=== PATIENT | male | born 1985 | race Two or more races ===

== ENCOUNTER 2021-02-13 11:43 | Outpatient (REF) | payer OTHER, SELFPAY ==
--- NOTE | ~2021-02-13 | XR_ITS ---
EXAMINATION: XR CHEST CLINICAL INFORMATION: Chronic bronchitis COMPARISON: None TECHNIQUE: 2 views of the chest were obtained. FINDINGS: No significant abnormality is noted involving the heart, lungs, mediastinum, bony thorax or soft tissues. XR/XR chest 2V IMPRESSION: Unremarkable examination.
== END 2021-02-13 11:44 | disposition home or self-care (01) ==
LOC: HO.XRAY 11:43
PROVIDERS: PCP Internal Medicine Medical Oncology; Visit Provider Internal Medicine Medical Oncology
DX: J42 Unspecified chronic bronchitis (principal)
CPT/HCPCS: 71046

== ENCOUNTER 2021-02-16 07:12 | Outpatient (REF) | payer OTHER, SELFPAY ==
[2021-02-16 08:19] LABS: Basophils Percent Auto 0.7 % (0-2); Eosinophils Absolute Auto 0.1 X10*3/uL (0.0-0.4); Eosinophils Percent Auto 3.7 % (0-4); Hematocrit 43.7 % (42-52); Hemoglobin 14.9 g/dl (14.0-18.0); Lymphocytes Absolute Auto 1.4 X10*3/uL (1.2-4.9); Lymphocytes Percent Auto 51.9 % (20-40); MANUAL DIFF FLAG SCAN; Mean Corpuscular HGB Conc 34.1 g/dl (31.0-36.0); Mean Corpuscular Hemoglobin 30.6 pg (27.0-33.0); Mean Corpuscular Volume 89.7 fL (80-98); Mean Platelet Volume 10.4 fL (9.4-12.4); Monocytes Absolute Auto 0.4 X10*3/uL (0.1-1.2); Monocytes Percent Auto 13.3 % (2-11); Neutrophils Absolute Auto 0.8 X10*3/uL (2.0-8.3); Neutrophils Percent Auto 30.4 % (45-73); Platelet Count 186 X10*3/uL (160-400); Red Blood Count 4.87 X10*6/uL (4.60-5.80); Red Cell Distribution Width 11.9 % (11.0-16.0); SCAN SMEAR FLAG 1; White Blood Count 2.7 X10*3/uL (4.8-10.8)
[2021-02-16 08:33] LABS: Alanine Aminotransferase 34 U/L (0-40); Albumin Level 4.1 g/dL (3.5-5.0); Alkaline Phosphatase 63 U/L (39-117); Anion Gap 9 (12-20); Aspartate Amino Transferase 27 U/L (5-37); Bilirubin Total 0.3 mg/dL (0.0-1.0); Blood Urea Nitrogen 10 mg/dL (9-16); Calcium 8.7 mg/dL (8.4-10.2); Carbon Dioxide 28 mmol/L (22-29); Chloride 106 mmol/L (96-108); Cholesterol 172 mg/dL; Estimated Glomerular Filt Rate > 60; Glucose Fasting 107 mg/dL (60-99); HDL Cholesterol 44 mg/dL; LDL Cholesterol Calculated 113 mg/dl; Sodium 139 mmol/L (135-145); Total Protein 7.2 g/dL (6.5-8.0); Triglycerides 77 mg/dL
[2021-02-16 08:52] LABS: PSA,Total (Free>4and<10) 0.49 ng/mL (0.00-4.00)
[2021-02-16 09:03] LABS: SLIDE REVIEW VERIFIED
== END 2021-02-16 07:13 | disposition home or self-care (01) ==
LOC: HO.HSHHMC 07:12
PROVIDERS: Visit Provider Internal Medicine Medical Oncology
DX: Z12.5 Encounter for screening for malignant neoplasm of prostate (principal); R35.1 Nocturia; E66.3 Overweight
CPT/HCPCS: 36415; 80053; 80061; 84153; 85025

== ENCOUNTER 2023-02-24 08:09 | Outpatient (REF) | payer OTHER, SELFPAY ==
[2023-02-24 08:27] LABS: MANUAL DIFF FLAG NO
[2023-02-24 09:13] LABS: Basophils Percent Auto 1.3 % (0-2); Eosinophils Absolute Auto 0.1 X10*3/uL (0.0-0.4); Eosinophils Percent Auto 2.5 % (0-4); Hematocrit 44.7 % (42.0-52.0); Hemoglobin 15.3 g/dl (14.0-18.0); Imm Gran Abs Auto 0.01 X10*3/uL (0.00-0.03); Imm Gran Pct Auto 0.3 % (0.0-0.4); Lymphocytes Absolute Auto 1.4 X10*3/uL (1.2-4.9); Lymphocytes Percent Auto 42.8 % (20-40); Mean Corpuscular HGB Conc 34.2 g/dl (31.0-36.0); Mean Corpuscular Hemoglobin 30.4 pg (27.0-33.0); Mean Corpuscular Volume 88.7 fL (80.0-98.0); Mean Platelet Volume 10.4 fL (9.4-12.4); Monocytes Absolute Auto 0.5 X10*3/uL (0.1-1.2); Monocytes Percent Auto 15.4 % (2-11); Neutrophils Absolute Auto 1.2 x10*3/uL (2.0-8.3); Neutrophils Percent Auto 37.7 % (45-73); Platelet Count 188 X10*3/uL (160-400); Red Blood Count 5.04 X10*6/uL (4.60-5.80); Red Cell Distribution Width 11.8 % (11.0-16.0); White Blood Count 3.2 X10*3/uL (4.8-10.8)
[2023-02-24 09:50] LABS: Alanine Aminotransferase 28 U/L (0-40); Albumin Level 4.1 g/dL (3.5-5.0); Alkaline Phosphatase 67 U/L (39-117); Anion Gap 13 (12-20); Aspartate Amino Transferase 24 U/L (5-37); Bilirubin Total 0.4 mg/dL (0.0-1.0); Blood Urea Nitrogen 12 mg/dL (9-16); Calcium 9.2 mg/dL (8.4-10.2); Carbon Dioxide 28 mmol/L (22-29); Chloride 105 mmol/L (96-108); Cholesterol 186 mg/dL (<200); Estimated Glomerular Filt Rate > 60; Glucose Fasting 98 mg/dL (60-99); HDL Cholesterol 39 mg/dL (>40); LDL Cholesterol Calculated 128 mg/dL (<100); Sodium 142 mmol/L (135-145); Total Protein 7.7 g/dL (6.5-8.0); Triglycerides 98 mg/dL (<150)
== END 2023-02-24 08:10 | disposition home or self-care (01) ==
LOC: HO.LAB 08:09
PROVIDERS: PCP Internal Medicine Medical Oncology; Visit Provider Internal Medicine Medical Oncology
DX: Z00.00 Encounter for general adult medical examination without abnormal findings (principal); E66.3 Overweight
CPT/HCPCS: 36415; 80053; 80061; 85025

== ENCOUNTER 2024-02-23 08:01 | Outpatient (REF) | payer OTHER, SELFPAY ==
[2024-02-23 08:23] LABS: Basophils Percent Auto 1.2 % (0-2); Eosinophils Absolute Auto 0.1 X10*3/uL (0.0-0.4); Eosinophils Percent Auto 2.5 % (0-4); Hematocrit 44.6 % (42.0-52.0); Hemoglobin 15.8 g/dl (14.0-18.0); Lymphocytes Absolute Auto 1.4 X10*3/uL (1.2-4.9); MANUAL DIFF FLAG SCAN; Mean Corpuscular HGB Conc 35.4 g/dl (31.0-36.0); Mean Corpuscular Hemoglobin 31.4 pg (27.0-33.0); Mean Corpuscular Volume 88.7 fL (80.0-98.0); Mean Platelet Volume 9.7 fL (9.4-12.4); Monocytes Absolute Auto 0.4 X10*3/uL (0.1-1.2); Monocytes Percent Auto 14.8 % (2-11); Neutrophils Absolute Auto 0.6 x10*3/uL (2.0-8.3); Neutrophils Percent Auto 25.5 % (45-73); Platelet Count 188 X10*3/uL (160-400); Red Blood Count 5.03 X10*6/uL (4.60-5.80); Red Cell Distribution Width 11.7 % (11.0-16.0); SCAN SMEAR FLAG 1
[2024-02-23 08:28] LABS: White Blood Count 2.4 X10*3/uL (4.8-10.8)
[2024-02-23 08:54] LABS: Alanine Aminotransferase 27 U/L (0-40); Albumin Level 4.3 g/dL (3.5-5.0); Alkaline Phosphatase 78 U/L (39-117); Anion Gap 10 (12-20); Aspartate Amino Transferase 22 U/L (5-37); Bilirubin Total 0.3 mg/dL (0.0-1.0); Blood Urea Nitrogen 13 mg/dL (9-16); Carbon Dioxide 29 mmol/L (22-29); Chloride 105 mmol/L (96-108); Cholesterol 187 mg/dL (<200); Estimated Glomerular Filt Rate > 60; Glucose Fasting 97 mg/dL (60-99); HDL Cholesterol 36 mg/dL (>40); LDL Cholesterol Calculated 133 mg/dL (<100); Potassium 3.9 mmol/L (3.3-5.1); Sodium 140 mmol/L (135-145); Total Protein 7.8 g/dL (6.5-8.0); Triglycerides 92 mg/dL (<150)
[2024-02-23 09:08] LABS: SLIDE REVIEW VERIFIED
[2024-02-23 09:22] LABS: Prostate Specific Antigen 0.58 ng/mL (<0.05-4.0)
== END 2024-02-23 08:02 | disposition home or self-care (01) ==
LOC: HO.LAB 08:01
PROVIDERS: PCP Internal Medicine Medical Oncology; Visit Provider Internal Medicine Medical Oncology
DX: Z00.00 Encounter for general adult medical examination without abnormal findings (principal); E66.3 Overweight; N40.0 Benign prostatic hyperplasia without lower urinary tract symptoms; Z12.5 Encounter for screening for malignant neoplasm of prostate
CPT/HCPCS: 36415; 80053; 80061; 84153; 85025

== ENCOUNTER 2025-02-28 07:51 | Outpatient (REF) | payer OTHER, SELFPAY ==
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
--- OUTSIDE RECORDS SUMMARY | 2025-02-28 07:55 | XMS_ITS | Patient Health Record ---
Author Organization Tone Tolentino III, MD Address [address] [place] [address] [place] [address] Care Team Providers Care Printing Roller Polisher Name Role Phone Dr. Tone Tolentino III [...] 0.2 - 1.3 BLD Negative Negative - Reason For Referral No Information Immunizations Vaccine Route Administration Date Status Comme nts Tdap Unknown 03/22/2019 Administered Influenza, quad Unknown 03/22/2019 Administered Influenza, quad Unknown 05/26/2020 Administered COVID- 19 Vaccine Unknown 03/12/2021 Administered COVID- 19 Vaccine Unknown 07/29/2021 Administered Decline: Influenza Unknown 02/29/2024 Others Social History [...] Never (0 point) Points 1 Interpretation Negative Problems Problem Type SNOMED Code ICD Code Onset Dates Problem Status W/U Status Risk Notes Problem Overweight (998672623) Overweight (BMI 25.0-29.9) (E66.3) Active confirmed His body mass index is 26. This is mostly muscle development. His examination shows very little body fat. His skin. Problem Benign prostatic hypertrophy without outflow obstruction (951991068) BPH (benign prostatic hypertrophy) (N40.0) Active confirmed He arises from sleep 0 to once a night. We discussed lifestyle modification as a way of reducing this. Problem 489350520 Neutropenia, unspecified type (D70.9) Active confirmed The white blood cell count is 2400 with an unremarkable differential.. He has had no significant infections. This will be observed.He has had no significant infections. Problem Chronic bronchitis (94311363) Chronic bronchitis (J42) Active confirmed . His pulmonary congestion has resolved. The cough has not been present. 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 He was treated by a wool hat flanger in [facility] with growth hormone injections briefly. He then had a normal puberty and continued maturation. There is no current deficiency. Vital Signs Heart Rate 69 /min 02/29/2024 Temperature 98.4 degrees Fahrenheit 02/29/2024 Blood pressure diastolic 80 mm Hg 02/29/2024 Height 67 in 02/29/2024 Blood pressure systolic 127 mm Hg 02/29/2024 Weight 173 lbs 02/29/2024 BMI 27.09 kg/m2 02/29/2024 Encounters Encounter Location Date Provider Diagnosis Tone Tolentino III, MD [address] [place] [address] DR [place], [place] [id number] 02/29/2024 Tone Tolentino Neutropenia, unspecified type D70.9 ; BPH (benign prostatic hypertrophy) N40.0 ; Growth hormone deficiency E23.0 ; Overweight (BMI 25.0-29.9) E66.3 ; Chronic bronchitis J42 and Annual physical exam Z00.00 Assessments Encounter Date Diagnosis (ICD Code) Assessment Notes Treatment Notes Treatment Clinical Notes 02/29/2024 BPH (benign prostatic hypertrophy) (ICD-10 - N40.0) He arises from sleep 0 to once a night. We discussed lifestyle modification as a way of reducing this. 02/29/2024 Neutropenia, unspecified type (ICD-10 - D70.9) The white blood cell count is 2400 with an unremarkable differential.. He has had no significant infections. This will be observed.He has had no significant infections. 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 He was treated by a wool hat flanger in [facility] with growth hormone injections briefly. He then [...] Order Date PROFILE, FASTING (COMPREHENSIVE METABOLI C) 02/18/2022 PROFILE, FASTING (COMPREHENSIVE METABOLI C) 02/13/2021 PROFILE, FASTING (COMPREHENSIVE METABOLI C) 02/29/2024 PROFILE, FASTING (COMPREHENSIVE METABOLI C) 02/24/2023 LIPID PANEL 02/18/2022 LIPID PANEL 02/13/2021 LIPID PANEL 02/24/2023 PSA, TOTAL 02/24/2023 PSA, TOTAL 02/29/2024 PSA, TOTAL+FREE 02/13/2021 CBC w DIFF 02/24/2023 CBC w DIFF 02/18/2022 CBC w DIFF 02/13/2021 XR CHEST 2 VIEW PA & LAT 02/13/2021 CBC WITH AUTO DIFF 02/29/2024 Lipid Panel 02/29/2024 Next Appt Details Provider Name:Tone Tolentino , 03/06/2025 09:30:00 AM, [address] [facility] , [address], [place], [id number], Insurance Providers Payer Name Payer Address Payer Phone Subscriber Number Group Number Insured Name Patient Relationship to Insured Coverage Start Date Coverage End Date [address] [place] [phone] [id number] Fabio Patrick Self - patient is the insured Medical (General) History Medical History History ICD Code Maturation arrest age 11 treated with gr owth hormone injections Mild rash on hands after flu vaccine Surgical History Surgery Date(Month/Year) None reported Hospitalization History Reason Date(Month/Year) None reported
--- OUTSIDE RECORDS SUMMARY | 2025-02-28 07:55 | XMS_ITS | Clinical Summary ---
Author Organization [facility] Address [address] [place] [id number] Phone Care Team Providers Care Cooler Operator Name Role Phone Unavailable Primary Care Provider Unavailabl e Immunizations Immunization Administration Dates Next Due DTP 01/04/1989, 6,08/04/1984,1984,01/05/1984 Hep B, ped/adol 11/27/1999,08/15/1997,07/24/1997 Hib (HbOC) 01/04/1987 MMR 07/24/1997,08/04/1985 OPV 01/04/1989, 6,06/06/1984,1983 Td (adult) (MBL), 2 Lf tetan us toxoid, PF, adsorbed 11/27/1999 Social History Tobacco Use Types Packs/Day Years Used Date Smoking Tobacco: Never Assessed Sex and Gender Information Value Date Recorded Sex Assigned at Not on file Legal Sex Male 4:42 PM EDT Gender Identity Not on file Sexual Orientation Not on file Plan of Treatment Health Maintenance Due Date Last Done Comments Varicella Vaccines (1 of 2 - 13+ 2-dose series) 08/21/1997 DTaP,Tdap,and Td Vaccines (6 - Tdap) 11/28/1999 11/27/1999, 01/04/1989, 02/04/1986, Additional history exists Hepatitis B Vaccines (3 of 3 - 3-dose series) 01/22/2000 11/27/1999, 08/15/1997, 07/24/1997 HPV Vaccines (1 - 3-dose SCDM series) 11/23/2010 Influenza Vaccines (#1) 2025 COVID-19 Vaccine ( season) 2025 HIB Vaccines Completed 01/04/1987 IPV Vaccines Completed 01/04/1989, 06/1985, 06/06/1984, Additional history exists MMR Vaccines Completed 07/24/1997, 08/04/1985 Hepatitis A Vaccines Aged Out No long er eligible based on patient's age to complete this topic Men B Vaccine Aged Out No longer elig ible based on patient's age to complete this topic Meningococcal Vaccine Aged Out No ines tong eligible based on patient's age to complete this topic Pneumococcal Vaccine Aged Out No long er eligible based on patient's age to complete this topic
[2025-02-28 10:45] LABS: Hematocrit 43.4 % (42.0-52.0); Hemoglobin 14.6 g/dl (14.0-18.0); Imm Gran Abs Auto 0.01 X10*3/uL (0.00-0.03); Imm Gran Pct Auto 0.4 % (0.0-0.4); Lymphocytes Absolute Auto 1.2 X10*3/uL (1.2-4.9); MANUAL DIFF FLAG SCAN; Mean Corpuscular HGB Conc 33.6 g/dl (31.0-36.0); Mean Corpuscular Hemoglobin 30.3 pg (27.0-33.0); Mean Corpuscular Volume 90.0 fL (80.0-98.0); NRBC Abs Auto 0.000 X10*3/uL (0.0-0.012); NRBC Pct Auto 0.0 /100WBC (0.0-0.2); Platelet Count 206 X10*3/uL (160-400); Red Blood Count 4.82 X10*6/uL (4.60-5.80); SCAN SMEAR FLAG 1
[2025-02-28 10:51] LABS: White Blood Count 2.4 X10*3/uL (4.8-10.8)
[2025-02-28 11:14] LABS: Prostate Specific Antigen 0.67 ng/mL (<0.05-4.0)
[2025-02-28 11:20] LABS: Alanine Aminotransferase 49 U/L (0-40); Albumin Level 4.2 g/dL (3.5-5.0); Alkaline Phosphatase 70 U/L (39-117); Anion Gap 7 (12-20); Aspartate Amino Transferase 36 U/L (5-37); Blood Urea Nitrogen 15 mg/dL (9-16); Calcium 8.7 mg/dL (8.4-10.2); Carbon Dioxide 31 mmol/L (22-29); Chloride 107 mmol/L (96-108); Cholesterol 207 mg/dL (<200); Estimated Glomerular Filt Rate > 60; HDL Cholesterol 41 mg/dL (>40); Potassium 4.2 mmol/L (3.3-5.1); Sodium 141 mmol/L (135-145); Total Protein 7.3 g/dL (6.5-8.0); Triglycerides 121 mg/dL (<150)
== END 2025-02-28 07:52 | disposition home or self-care (01) ==
LOC: HO.10HDL 07:51
PROVIDERS: Visit Provider Internal Medicine Medical Oncology
DX: Z00.00 Encounter for general adult medical examination without abnormal findings (principal); Z12.5 Encounter for screening for malignant neoplasm of prostate; N40.0 Benign prostatic hyperplasia without lower urinary tract symptoms; E66.3 Overweight; D70.9 Neutropenia, unspecified
CPT/HCPCS: 36415; 80053; 80061; 84153; 85025